=== PATIENT | male | born 1935 | race Caucasian/White ===

== ENCOUNTER 2016-11-16 13:07 | Observation (INO) | payer OTHER ==
[~2016-11-16] VITALS: Ht 170.2 cm; Wt 80.3 kg
[~2016-11-16 13:07] MED LIST: ADVAIR 250/501 DISK IH; ADVAIR 500/501 DISK IH; COMBIVENT RESPIM4 GM IH; DESYREL100 MG PO; DUONEB 2.5-0.5 M3 ML AEROSOL; FLOVENT 11120 INHALA IH; HYDRALAZINE HCL50 MG PO; INDOCIN50 MG PO; INDOMETHACIN50 MG PO; LISINOPRIL20 MG PO; LO-DOSE ASPIRIN81 M2 PO; NAPROXEN500 MG PO; NITROSTAT0.4 MG SL; OXAYDO5 MG PO; PANTOPRAZOLE SO40 MG PO; PERCOCET 5/31 TABLET PO; PREDNISONE10 MG PO; PREDNISONE20 MG PO; PRILOSEC20 MG PO; PRINIVIL10 MG PO; PROVENTIL,2.5 MG/3 M IH; SINGULAIR10 MG PO; THEO-24200 MG PO; VENTOLIN HFA18 GM IH; ZITHROMAX Z-PA250 MG PO; ZOCOR20 MG PO
[2016-11-16 14:20] LABS: HEMATOCRIT 39.1 % (38.0-50.0); MCH 28.7 PG (29.0-34.0); MCHC 32.5 G/DL (30.0-36.0); MCV 88.3 FL (86-99); MEAN PLAT.VOLUME 10.4 uM^3 (9.0-12.4); PLATELET COUNT 332 K/uL (156-360); RBC DIS.WIDTH-CV 15.2 % (11.8-14.6); RBC DIS.WIDTH-SD 47.8 % (39-53); RED BLOOD COUNT 4.43 M/uL (4.00-5.50); WHITE BLOOD COUNT 15.4 K/uL (4.1-10.2)
[2016-11-16 14:30] LABS: CHLORIDE 102 mEq/L (99-109); POTASSIUM 4.1 mEq/L (3.7-5.4); SODIUM 139 mEq/L (136-147)
[2016-11-16 14:32] LABS: GLUCOSE 90 mg/dL (70-99)
[2016-11-16 14:33] LABS: ANION GAP 12 MEQ/L (2-14)
[2016-11-16 14:36] LABS: GFR ESTIMATE (CALCULATED) 48 mL/min/
[2016-11-16 14:37] VITALS: BP 108/78
[2016-11-16 14:37] LABS: UREA NITROGEN (BUN) 42 mg/dL (9-23)
[2016-11-16 14:41] LABS: TROP-I INTERPRETATION NEGATIVE; TROPONIN-I 0.01 ng/mL (0.0-0.30)
[2016-11-16 15:00] VITALS: BP 134/56
[2016-11-16 15:19] LABS: PROTHROMBIN TIME 10.1 (9.2-11.2)
[2016-11-16 15:30] VITALS: BP 114/51
[2016-11-16 16:00] VITALS: BP 131/61
[2016-11-16 16:30] VITALS: BP 116/56
[2016-11-16] MEDS ORDERED: PRINIVIL20 MG PO (17:47)
[2016-11-16] MEDS ORDERED: PREDNISONE10 MG PO (17:50)
[2016-11-16 21:31] LABS: TROP-I INTERPRETATION NEGATIVE; TROPONIN-I 0.01 ng/mL (0.0-0.30)
[2016-11-16 21:33] VITALS: BP 105/52
[2016-11-17 00:26] VITALS: BP 134/63
[2016-11-17 03:02] LABS: TROP-I INTERPRETATION NEGATIVE; TROPONIN-I < 0.01 ng/mL (0.0-0.30)
[2016-11-17 04:30] VITALS: BP 122/56
[2016-11-17 07:03] LABS: HEMATOCRIT 38.6 % (38.0-50.0); MCHC 31.6 G/DL (30.0-36.0); MCV 88.7 FL (86-99); MEAN PLAT.VOLUME 10.7 uM^3 (9.0-12.4); PLATELET COUNT 304 K/uL (156-360); RBC DIS.WIDTH-CV 15.6 % (11.8-14.6); RBC DIS.WIDTH-SD 50.9 % (39-53); RED BLOOD COUNT 4.35 M/uL (4.00-5.50)
[2016-11-17 07:12] LABS: ANION GAP 11 MEQ/L (2-14); CHLORIDE 105 MEQ/L (99-109); GFR ESTIMATE (CALCULATED) > 59 mL/min/; SAMPLE HEMOLYSIS CHECK 0; SAMPLE ICTERIC CHECK 0; SAMPLE LIPEMIA CHECK 0; SODIUM 141 MEQ/L (136-147); UREA NITROGEN (BUN) 31 mg/dL (9-23)
[2016-11-17 07:13] LABS: WHITE BLOOD COUNT 7.1 K/uL (4.1-10.2)
[2016-11-17 07:21] LABS: GLUCOSE 154 mg/dL (70-99)
[2016-11-17 08:45] VITALS: BP 146/66
[2016-11-17] MEDS ORDERED: AZITHROMYCIN500 M1 PO (11:27)
== END 2016-11-17 12:01 | disposition home or self-care (01) ==
LOC: EME 13:07 → EDOF 18:16 → 5WEST 18:16 → EDOF 18:16 → 5WEST 21:25
PROVIDERS: Hospitalist; Physician Assistant
DX: I25.119 Atherosclerotic heart disease of native coronary artery with unspecified angina pectoris (principal); J44.1 Chronic obstructive pulmonary disease with (acute) exacerbation; N17.9 Acute kidney failure, unspecified; R20.0 Anesthesia of skin; I10 Essential (primary) hypertension; K21.9 Gastro-esophageal reflux disease without esophagitis; M10.9 Gout, unspecified; Z87.891 Personal history of nicotine dependence
CPT/HCPCS: 70450; 71020; 71275; 74174; 80048; 83605; 84484; 85027; 85610; 85730; 87040; 93005; 94640; 94640 76; 99202; 99281; 99284; G0378; J1644; J7030; J7512

== ENCOUNTER 2017-06-22 06:34 | Observation (INO) | payer OTHER ==
[~2017-06-22] VITALS: Ht 170.2 cm; Wt 77.8 kg
[~2017-06-22 06:34] MED LIST changes: +AZITHROMYCIN500 M1 PO; -OXAYDO5 MG PO; +OXYCODONE HCL5 MG PO; +PRINIVIL20 MG PO
[2017-06-22 07:41] LABS: BASOPHIL COUNT 0.1 K/uL (0-0.1); EOSINOPHIL (%) 8.6 % (0-5); EOSINOPHIL COUNT 1.1 K/uL (0-0.3); HEMATOCRIT 40.1 % (38.0-50.0); IMMATURE GRANULOCYTE (%) 1.5 % (0.0-0.7); IMMATURE GRANULOCYTE COUNT 0.2 K/uL; INSTRUMENT ABS NEUTROPHIL CT 7.4 K/uL; LYMPHOCYTE COUNT 2.7 K/uL (1.0-2.8); MCH 28.9 PG (29.0-34.0); MCHC 31.9 G/DL (30.0-36.0); MCV 90.5 FL (86-99); MONOCYTE (%) 7.8 % (3-12); NEUTROPHIL (%) 59.4 % (45-76); NEUTROPHIL COUNT 7.4 K/uL (1.8-6.4); PLATELET COUNT 234 K/uL (156-360); PROTHROMBIN TIME 11.5 SEC (10.2-12.9); RBC DIS.WIDTH-CV 13.8 % (11.8-14.6); RBC DIS.WIDTH-SD 45.9 % (39-53); RED BLOOD COUNT 4.43 M/uL (4.00-5.50); WHITE BLOOD COUNT 12.4 K/uL (4.1-10.2)
[2017-06-22 07:43] LABS: PTT 26.8 SEC (25-37)
[2017-06-22 08:08] LABS: ANION GAP 10 MEQ/L (2-14); CHLORIDE 102 MEQ/L (99-109); POTASSIUM 4.1 MEQ/L (3.7-5.4); SAMPLE HEMOLYSIS CHECK 0; SAMPLE ICTERIC CHECK 0; SAMPLE LIPEMIA CHECK 0; SODIUM 139 MEQ/L (136-147)
[2017-06-22 08:13] LABS: GFR ESTIMATE (CALCULATED) > 59 mL/min/; GLUCOSE 151 mg/dL (70-99); UREA NITROGEN (BUN) 31 mg/dL (9-23)
[2017-06-22 08:16] LABS: TROP-I INTERPRETATION NEGATIVE; TROPONIN-I 0.02 ng/mL (0.0-0.30)
[2017-06-22 12:30] VITALS: BP 152/70
[2017-06-22 14:45] LABS: TROP-I INTERPRETATION NEGATIVE; TROPONIN-I 0.02 ng/mL (0.0-0.30)
[2017-06-22 15:48] VITALS: BP 121/56
[2017-06-22 20:00] VITALS: BP 92/54
[2017-06-22 20:37] LABS: TROP-I INTERPRETATION NEGATIVE; TROPONIN-I 0.02 ng/mL (0.0-0.30)
[2017-06-22 23:30] VITALS: BP 131/59
[2017-06-23 07:34] VITALS: BP 124/61
[2017-06-23] MEDS ORDERED: MELOXICAM15 MG PO (09:41)
[2017-06-23] MEDS ORDERED: TIZANIDINE HCL4 MG PO (09:41)
[2017-06-23] MEDS ORDERED: INDOCIN50 MG PO (09:41)
[2017-06-23 10:36] VITALS: BP 143/60
[2017-06-23] MEDS ORDERED: METOPROLOL SUCC25 MG PO (10:42)
== END 2017-06-23 13:04 | disposition home or self-care (01) ==
LOC: EME → EDBD 06:34 → EDOF 09:34 → 5WEST 09:34 → EDOF 09:34 → ENRESERV 09:44 → 5WEST 12:31
PROVIDERS: Emergency Medicine; Internal Medicine; Internal Medicine Cardiovascular Disease
DX: I47.1 Supraventricular tachycardia (principal); I25.10 Atherosclerotic heart disease of native coronary artery without angina pectoris; J44.9 Chronic obstructive pulmonary disease, unspecified; I11.9 Hypertensive heart disease without heart failure; K21.9 Gastro-esophageal reflux disease without esophagitis; E78.5 Hyperlipidemia, unspecified; Z91.19 Patient's noncompliance with other medical treatment and regimen; Z91.14 Patient's other noncompliance with medication regimen; M10.9 Gout, unspecified; Z87.891 Personal history of nicotine dependence; D72.829 Elevated white blood cell count, unspecified; Z80.0 Family history of malignant neoplasm of digestive organs; Z80.51 Family history of malignant neoplasm of kidney
CPT/HCPCS: 71010; 80048; 84443; 84484; 85025; 85379; 85610; 85730; 93005; 93306; 94640; 94640 76; 94760; 99202; 99281; 99285; G0378; J1650; J7512

== ENCOUNTER 2017-10-02 15:42 | Inpatient (IN) | payer OTHER ==
[~2017-10-02] VITALS: Ht 170.2 cm; Wt 84.5 kg
[~2017-10-02 15:42] MED LIST changes: +MELOXICAM15 MG PO; +METOPROLOL SUCC25 MG PO; -PRINIVIL20 MG PO; +TIZANIDINE HCL4 MG PO
[2017-10-02 16:08] LABS: HEMATOCRIT 36.9 % (38.0-50.0); HEMOGLOBIN 12.2 G/DL (12.5-16.6); MCHC 33.1 G/DL (30.0-36.0); MCV 87.9 FL (86-99); NRBC (%) 0.2 /100 WBC (0-0); PLATELET COUNT 373 K/uL (156-360); RBC DIS.WIDTH-CV 14.8 % (11.8-14.6); RBC DIS.WIDTH-SD 47.8 % (39-53); WHITE BLOOD COUNT 14.1 K/uL (4.1-10.2)
[2017-10-02 16:11] LABS: ALBUMIN 3.7 g/dL (3.2-4.8); CHLORIDE 106 mEq/L (99-109); POTASSIUM 4.2 mEq/L (3.7-5.4); SODIUM 141 mEq/L (136-147)
[2017-10-02 16:13] LABS: GLUCOSE 165 mg/dL (70-99); TOTAL PROTEIN 5.9 g/dL (6.4-8.3)
[2017-10-02 16:15] LABS: TOTAL BILIRUBIN 0.3 mg/dL (0.0-1.0)
[2017-10-02 16:17] LABS: ALKALINE PHOSPHATASE 91 IU/L (3-129); CREATININE 1.2 mg/dL (0.6-1.3); GFR ESTIMATE (CALCULATED) > 59 mL/min/ (58.99-99999)
[2017-10-02 16:18] LABS: UREA NITROGEN (BUN) 35 mg/dL (9-23)
[2017-10-02 16:19] LABS: AST (GOT) 14 IU/L (2-34)
[2017-10-02 16:20] LABS: ALT (GPT) 14 IU/L (3-49); CREATINE KINASE 72 IU/L (1-294); TOTAL CK 72 IU/L (1-294)
[2017-10-02 16:23] LABS: TROP-I INTERPRETATION NEGATIVE; TROPONIN-I 0.03 ng/mL (0.0-0.30)
[2017-10-02 16:26] LABS: CK-MB 1.6 ng/mL (0.0-4.9); CKMB RELATIVE INDEX 2.2 (0.0-3.9)
[2017-10-02] MEDS ORDERED: VENTOLIN HFA18 GM IH (17:38)
[2017-10-02] MEDS ORDERED: DELTASONE20 M1 PO (17:40)
[2017-10-02] MEDS ORDERED: PREDNISONE5 MG PO (17:40)
[2017-10-02] MEDS ORDERED: ISOSORBIDE DINI20 MG PO (17:41)
[2017-10-02] MEDS ORDERED: ATORVASTATIN CA40 MG PO (17:41)
[2017-10-02] MEDS ORDERED: SINGULAIR10 MG PO (17:41)
[2017-10-02 22:56] LABS: TROP-I INTERPRETATION NEGATIVE; TROPONIN-I 0.03 ng/mL (0.0-0.30)
[2017-10-03 09:11] LABS: TROP-I INTERPRETATION NEGATIVE; TROPONIN-I 0.02 ng/mL (0.0-0.30)
[2017-10-03 17:57] VITALS: BP 138/77
[2017-10-03 19:20] VITALS: BP 162/73
[2017-10-03 23:30] VITALS: BP 134/65
[2017-10-04] VITALS (8 sets, daily range): BP systolic 134–180; BP diastolic 62–85
[2017-10-04 04:44] LABS: HEMOGLOBIN 10.3 G/DL (12.5-16.6); MCH 29.3 PG (29.0-34.0); MCHC 33.2 G/DL (30.0-36.0); MCV 88.1 FL (86-99); PLATELET COUNT 307 K/uL (156-360); RBC DIS.WIDTH-CV 14.8 % (11.8-14.6); RBC DIS.WIDTH-SD 47.9 % (39-53); RED BLOOD COUNT 3.52 M/uL (4.00-5.50); WHITE BLOOD COUNT 14.7 K/uL (4.1-10.2)
[2017-10-04 04:53] LABS: ALBUMIN 3.2 g/dL (3.2-4.8); CHLORIDE 111 mEq/L (99-109); POTASSIUM 4.5 mEq/L (3.7-5.4); SODIUM 141 mEq/L (136-147)
[2017-10-04 04:55] LABS: GLUCOSE 156 mg/dL (70-99)
[2017-10-04 04:57] LABS: TOTAL PROTEIN 4.9 g/dL (6.4-8.3)
[2017-10-04 04:59] LABS: CREATININE 1.1 mg/dL (0.6-1.3); GFR ESTIMATE (CALCULATED) > 59 mL/min/ (58.99-99999)
[2017-10-04 05:00] LABS: UREA NITROGEN (BUN) 33 mg/dL (9-23)
[2017-10-04 05:01] LABS: AST (GOT) 8 IU/L (2-34)
[2017-10-04 05:02] LABS: ALT (GPT) 11 IU/L (3-49)
[2017-10-04 05:03] LABS: ALKALINE PHOSPHATASE 55 IU/L (3-129); TOTAL BILIRUBIN 0.5 mg/dL (0.0-1.0)
[2017-10-05 05:57] LABS: HEMATOCRIT 32.6 % (38.0-50.0); HEMOGLOBIN 10.5 G/DL (12.5-16.6); MCH 28.5 PG (29.0-34.0); MCHC 32.2 G/DL (30.0-36.0); MCV 88.3 FL (86-99); PLATELET COUNT 310 K/uL (156-360); RBC DIS.WIDTH-CV 15.3 % (11.8-14.6); RBC DIS.WIDTH-SD 48.9 % (39-53); RED BLOOD COUNT 3.69 M/uL (4.00-5.50); WHITE BLOOD COUNT 12.4 K/uL (4.1-10.2)
[2017-10-05 06:42] LABS: ALBUMIN 2.9 G/DL (3.2-4.8); ALKALINE PHOSPHATASE 50 IU/L (3-129); ALT (GPT) 8 IU/L (3-49); AST (GOT) 7 IU/L (2-34); CHLORIDE 108 MEQ/L (99-109); CREATININE 1.3 MG/DL (0.6-1.3); GFR ESTIMATE (CALCULATED) 56 mL/min/ (58.99-99999); GLUCOSE 156 mg/dL (70-99); POTASSIUM 4.6 MEQ/L (3.7-5.4); SODIUM 141 MEQ/L (136-147); TOTAL BILIRUBIN 0.5 MG/DL (0.0-1.0); UREA NITROGEN (BUN) 44 mg/dL (9-23)
[2017-10-05 07:41] VITALS: BP 167/83
[2017-10-05 11:34] VITALS: BP 143/79
[2017-10-05 15:14] VITALS: BP 164/68
[2017-10-05 21:00] VITALS: BP 180/75
[2017-10-06] VITALS (8 sets, daily range): BP systolic 146–195; BP diastolic 69–101
[2017-10-07 03:30] VITALS: BP 180/75
[2017-10-07 05:19] LABS: HEMOGLOBIN 10.2 G/DL (12.5-16.6); MCH 29.1 PG (29.0-34.0); MCHC 32.9 G/DL (30.0-36.0); MCV 88.6 FL (86-99); NRBC (%) 0.2 /100 WBC (0-0); PLATELET COUNT 256 K/uL (156-360); RBC DIS.WIDTH-CV 15.8 % (11.8-14.6); WHITE BLOOD COUNT 13.2 K/uL (4.1-10.2)
[2017-10-07 05:54] LABS: ALBUMIN 2.8 G/DL (3.2-4.8); ALKALINE PHOSPHATASE 56 IU/L (3-129); ALT (GPT) 10 IU/L (3-49); AST (GOT) 9 IU/L (2-34); CHLORIDE 105 MEQ/L (99-109); GFR ESTIMATE (CALCULATED) > 59 mL/min/ (58.99-99999); GLUCOSE 105 mg/dL (70-99); POTASSIUM 4.5 MEQ/L (3.7-5.4); SODIUM 140 MEQ/L (136-147); TOTAL BILIRUBIN 0.5 MG/DL (0.0-1.0); TOTAL PROTEIN 4.7 G/DL (6.4-8.3); UREA NITROGEN (BUN) 41 mg/dL (9-23)
[2017-10-07 06:13] VITALS: BP 153/87
[2017-10-07] MEDS ORDERED: METOPROLOL SUCC50 MG PO (08:22)
[2017-10-07] MEDS ORDERED: PREDNISONE20 MG PO (08:22)
[2017-10-07 08:48] VITALS: BP 151/78
== END 2017-10-07 09:00 | disposition home or self-care (01) | DRG 287 ==
LOC: EME 15:42 → EDOF 18:15 → 4EAST 18:15 → ENRESERV 19:00 → 4EAST 10-03 17:47
PROVIDERS: Family Medicine; Internal Medicine; Physician Assistant
DX: I48.91 Unspecified atrial fibrillation (principal); I47.1 Supraventricular tachycardia; I48.92 Unspecified atrial flutter; J20.9 Acute bronchitis, unspecified; J44.0 Chronic obstructive pulmonary disease with (acute) lower respiratory infection; J44.1 Chronic obstructive pulmonary disease with (acute) exacerbation; I95.9 Hypotension, unspecified; I11.9 Hypertensive heart disease without heart failure; I25.10 Atherosclerotic heart disease of native coronary artery without angina pectoris; R91.8 Other nonspecific abnormal finding of lung field; K21.9 Gastro-esophageal reflux disease without esophagitis; M10.9 Gout, unspecified; E66.9 Obesity, unspecified; Z68.29 Body mass index [BMI] 29.0-29.9, adult; E78.5 Hyperlipidemia, unspecified; Z91.19 Patient's noncompliance with other medical treatment and regimen; Z87.891 Personal history of nicotine dependence; Z80.0 Family history of malignant neoplasm of digestive organs; Z80.51 Family history of malignant neoplasm of kidney; Z82.5 Family history of asthma and other chronic lower respiratory diseases
CPT/HCPCS: 71046; 71250; 80053; 82550; 82553; 84484; 85027; 93005; 94640; 94640 76; 94799; 99202; 99281; 99285; C1769; C1887; J0456; J1644; J1650; J2250; J2405; J2930; J3010; J7030; J7040; J7050; J7512

== ENCOUNTER 2017-11-27 15:54 | Inpatient (IN) | payer OTHER ==
[~2017-11-27] VITALS: Ht 170.2 cm; Wt 82.0 kg
[~2017-11-27 15:54] MED LIST changes: +ATORVASTATIN CA40 MG PO; +DELTASONE20 M1 PO; +ISOSORBIDE DINI20 MG PO; +METOPROLOL SUCC50 MG PO; +PREDNISONE5 MG PO
[2017-11-27 16:59] LABS: HEMATOCRIT 30.3 % (38.0-50.0); HEMOGLOBIN 9.9 G/DL (12.5-16.6); MCH 29.1 PG (29.0-34.0); MCHC 32.7 G/DL (30.0-36.0); MCV 89.1 FL (86-99); PLATELET COUNT 320 K/uL (156-360); RBC DIS.WIDTH-CV 14.4 % (11.8-14.6); RBC DIS.WIDTH-SD 46.8 % (39-53); WHITE BLOOD COUNT 13.7 K/uL (4.1-10.2)
[2017-11-27 17:10] LABS: CHLORIDE 107 mEq/L (99-109); POTASSIUM 4.7 mEq/L (3.7-5.4)
[2017-11-27 17:11] LABS: SODIUM 141 mEq/L (136-147)
[2017-11-27 17:12] LABS: GLUCOSE 125 mg/dL (70-99)
[2017-11-27 17:16] LABS: CREATININE 1.6 mg/dL (0.6-1.3); GFR ESTIMATE (CALCULATED) 44 mL/min/ (58.99-99999)
[2017-11-27 17:17] LABS: UREA NITROGEN (BUN) 35 mg/dL (9-23)
[2017-11-27 17:20] LABS: TROP-I INTERPRETATION NEGATIVE; TROPONIN-I < 0.01 ng/mL (0.0-0.30)
[2017-11-27 18:29] LABS: ALBUMIN 3.4 g/dL (3.2-4.8)
[2017-11-27 18:32] LABS: TOTAL PROTEIN 6.6 g/dL (6.4-8.3)
[2017-11-27 18:34] LABS: TOTAL BILIRUBIN 0.8 mg/dL (0.0-1.0)
[2017-11-27 18:35] LABS: ALKALINE PHOSPHATASE 74 IU/L (3-129)
[2017-11-27 18:37] LABS: AST (GOT) 16 IU/L (2-34)
[2017-11-27 18:38] LABS: ALT (GPT) 5 IU/L (3-49); DIRECT BILIRUBIN 0.4 mg/dL (0.0-0.3); URIC ACID 11.5 mg/dL (3.1-9.2)
[2017-11-27] MEDS ORDERED: TOPROL XL50 MG PO (18:59)
[2017-11-27] MEDS ORDERED: RAYOS5 MG PO (19:01)
[2017-11-27] MEDS ORDERED: MOBIC15 MG PO (19:01)
[2017-11-27] MEDS ORDERED: ZANAFLEX4 M1 PO (19:02)
[2017-11-27] MEDS ORDERED: OXAYDO5 MG PO (19:02)
[2017-11-27] MEDS ORDERED: ATROVENT 00.5 MG/2.5 IH (19:03)
[2017-11-27] MEDS ORDERED: LO-DOSE ASPIRIN81 M2 PO (19:04)
[2017-11-27 20:54] VITALS: BP 169/74
[2017-11-27 23:00] VITALS: BP 150/58
[2017-11-28 03:47] VITALS: BP 123/57
[2017-11-28 06:47] LABS: BASOPHIL (%) 0.3 % (0-1); EOSINOPHIL (%) 0 % (0-5); HEMATOCRIT 27.1 % (38.0-50.0); HEMOGLOBIN 8.5 G/DL (12.5-16.6); IMMATURE GRANULOCYTE (%) 0.7 % (0.0-0.7); LYMPHOCYTE (%) 15.1 % (15-42); LYMPHOCYTE COUNT 1.1 K/uL (1.0-2.8); MCH 28.4 PG (29.0-34.0); MCHC 31.4 G/DL (30.0-36.0); MCV 90.6 FL (86-99); MONOCYTE (%) 1.4 % (3-12); MONOCYTE COUNT 0.1 K/uL (0-0.8); NEUTROPHIL (%) 82.5 % (45-76); NEUTROPHIL COUNT 5.8 K/uL (1.8-6.4); PLATELET COUNT 286 K/uL (156-360); RBC DIS.WIDTH-CV 14.7 % (11.8-14.6); RBC DIS.WIDTH-SD 48.8 % (39-53); RED BLOOD COUNT 2.99 M/uL (4.00-5.50); WHITE BLOOD COUNT 7.1 K/uL (4.1-10.2)
[2017-11-28 07:05] LABS: TROP-I INTERPRETATION NEGATIVE; TROPONIN-I < 0.01 ng/mL (0.0-0.30)
[2017-11-28 07:18] LABS: ALBUMIN 2.9 G/DL (3.2-4.8); ALKALINE PHOSPHATASE 60 IU/L (3-129); ALT (GPT) 4 IU/L (3-49); AST (GOT) < 7 IU/L (2-34); CHLORIDE 110 MEQ/L (99-109); CREATININE 1.6 MG/DL (0.6-1.3); GFR ESTIMATE (CALCULATED) 44 mL/min/ (58.99-99999); MAGNESIUM 1.6 mg/dl (1.3-2.7); PHOSPHORUS 2.9 mg/dL (2.5-4.9); SODIUM 141 MEQ/L (136-147); TOTAL BILIRUBIN 0.5 MG/DL (0.0-1.0); TOTAL PROTEIN 5.2 G/DL (6.4-8.3); UREA NITROGEN (BUN) 36 mg/dL (9-23)
[2017-11-28 07:31] LABS: GLUCOSE 325 mg/dL (70-99)
[2017-11-28 07:32] LABS: POTASSIUM 5.7 MEQ/L (3.7-5.4)
[2017-11-28 07:49] VITALS: BP 137/67
[2017-11-28 08:17] LABS: APPEARANCE CLEAR ((CLEAR)); COLOR YELLOW ((YELLOW))
[2017-11-28 08:18] LABS: PROTEIN (STRIP) TRACE; UROBILINOGEN 0.2 MG/DL (0.2-1.0)
[2017-11-28 08:19] LABS: BILIRUBIN NEGATIVE; BLOOD NEGATIVE; GLUCOSE (STRIP) NEGATIVE; KETONES NEGATIVE; LEUKOCYTES NEGATIVE; NITRITE NEGATIVE; UCUL ADDED? NO
[2017-11-28 11:02] LABS: LYME DISEASE SEROLOGY SCREEN NEGATIVE (NEGATIVE)
[2017-11-28 11:09] LABS: HEMOGLOBIN A1c (GLYCOHEMOGLOB) 6.4 % (Below 5.7)
[2017-11-28 11:18] VITALS: BP 136/78
[2017-11-28 15:32] VITALS: BP 176/72
[2017-11-28 18:19] LABS: STOOL OCCULT BLD 1ST SPECIMEN NEGATIVE
[2017-11-28 19:50] VITALS: BP 140/90
[2017-11-29 00:05] VITALS: BP 188/77
[2017-11-29 03:48] VITALS: BP 149/63
[2017-11-29 05:29] LABS: HEMATOCRIT 25.2 % (38.0-50.0); HEMOGLOBIN 8.3 G/DL (12.5-16.6); MCH 29.3 PG (29.0-34.0); MCHC 32.9 G/DL (30.0-36.0); PLATELET COUNT 318 K/uL (156-360); RBC DIS.WIDTH-CV 14.8 % (11.8-14.6); RBC DIS.WIDTH-SD 48.4 % (39-53); RED BLOOD COUNT 2.83 M/uL (4.00-5.50); WHITE BLOOD COUNT 13.7 K/uL (4.1-10.2)
[2017-11-29 05:55] LABS: ALBUMIN 2.8 G/DL (3.2-4.8); CHLORIDE 110 MEQ/L (99-109); CREATININE 1.7 MG/DL (0.6-1.3); GFR ESTIMATE (CALCULATED) 41 mL/min/ (58.99-99999); GLUCOSE 192 mg/dL (70-99); IRON 57 MCG/DL (35-150); PHOSPHORUS 3.4 mg/dL (2.5-4.9); POTASSIUM 5.9 MEQ/L (3.7-5.4); SODIUM 141 MEQ/L (136-147); TRANSFERRIN (TIBC) 157.6 mg/dL (215-380); TRANSFERRIN SATUR. 36 % (20-55); UREA NITROGEN (BUN) 40 mg/dL (9-23)
[2017-11-29 06:15] LABS: URIC ACID 10.3 mg/dL (3.1-9.2)
[2017-11-29 08:05] LABS: FERRITIN 212 NG/ML (22-322)
[2017-11-29 08:08] LABS: FOLIC ACID (FOLATE) 8.7 NG/ML (5.0-22.0)
[2017-11-29 08:48] VITALS: BP 172/74
[2017-11-29 11:27] VITALS: BP 188/79
[2017-11-29 16:11] LABS: CHLORIDE 108 MEQ/L (99-109); CREATININE 1.5 MG/DL (0.6-1.3); GFR ESTIMATE (CALCULATED) 48 mL/min/ (58.99-99999); SODIUM 138 MEQ/L (136-147); UREA NITROGEN (BUN) 43 mg/dL (9-23)
[2017-11-29 16:30] LABS: GLUCOSE 295 mg/dL (70-99)
[2017-11-29 20:39] VITALS: BP 127/60
[2017-11-30 00:22] VITALS: BP 131/67
[2017-11-30 04:17] VITALS: BP 174/77
[2017-11-30 05:49] LABS: BASOPHIL (%) 0.1 % (0-1); EOSINOPHIL (%) 0 % (0-5); HEMATOCRIT 25.4 % (38.0-50.0); HEMOGLOBIN 8.1 G/DL (12.5-16.6); IMMATURE GRANULOCYTE (%) 0.8 % (0.0-0.7); LYMPHOCYTE (%) 18.2 % (15-42); LYMPHOCYTE COUNT 2.3 K/uL (1.0-2.8); MCH 28.2 PG (29.0-34.0); MCHC 31.9 G/DL (30.0-36.0); MCV 88.5 FL (86-99); MONOCYTE (%) 9.1 % (3-12); MONOCYTE COUNT 1.2 K/uL (0-0.8); NEUTROPHIL (%) 71.8 % (45-76); NEUTROPHIL COUNT 9.1 K/uL (1.8-6.4); PLATELET COUNT 334 K/uL (156-360); RBC DIS.WIDTH-CV 14.8 % (11.8-14.6); RBC DIS.WIDTH-SD 48.4 % (39-53); RED BLOOD COUNT 2.87 M/uL (4.00-5.50); WHITE BLOOD COUNT 12.7 K/uL (4.1-10.2)
[2017-11-30 06:15] LABS: ALBUMIN 2.9 G/DL (3.2-4.8); CHLORIDE 108 MEQ/L (99-109); CREATININE 1.3 MG/DL (0.6-1.3); GFR ESTIMATE (CALCULATED) 56 mL/min/ (58.99-99999); PHOSPHORUS 3.6 mg/dL (2.5-4.9); POTASSIUM 4.5 MEQ/L (3.7-5.4); SODIUM 142 MEQ/L (136-147); UREA NITROGEN (BUN) 41 mg/dL (9-23)
[2017-11-30 06:17] LABS: GLUCOSE 126 mg/dL (70-99)
[2017-11-30 07:36] VITALS: BP 183/85
[2017-11-30 12:01] VITALS: BP 161/74
[2017-11-30 18:49] VITALS: BP 158/62
[2017-12-01] VITALS (8 sets, daily range): BP systolic 118–188; BP diastolic 57–92
[2017-12-01 05:38] LABS: BASOPHIL (%) 0.2 % (0-1); EOSINOPHIL (%) 0 % (0-5); HEMATOCRIT 29.3 % (38.0-50.0); HEMOGLOBIN 9.2 G/DL (12.5-16.6); IMMATURE GRANULOCYTE (%) 2.4 % (0.0-0.7); LYMPHOCYTE (%) 13.9 % (15-42); LYMPHOCYTE COUNT 1.6 K/uL (1.0-2.8); MCH 27.8 PG (29.0-34.0); MCHC 31.4 G/DL (30.0-36.0); MCV 88.5 FL (86-99); MONOCYTE (%) 3.6 % (3-12); MONOCYTE COUNT 0.4 K/uL (0-0.8); NEUTROPHIL (%) 79.9 % (45-76); NEUTROPHIL COUNT 9.1 K/uL (1.8-6.4); PLATELET COUNT 391 K/uL (156-360); RBC DIS.WIDTH-SD 49.1 % (39-53); RED BLOOD COUNT 3.31 M/uL (4.00-5.50); WHITE BLOOD COUNT 11.4 K/uL (4.1-10.2)
[2017-12-01 06:05] LABS: ALBUMIN 3.2 G/DL (3.2-4.8); CHLORIDE 104 MEQ/L (99-109); CREATININE 1.3 MG/DL (0.6-1.3); GFR ESTIMATE (CALCULATED) 56 mL/min/ (58.99-99999); GLUCOSE 212 mg/dL (70-99); PHOSPHORUS 4.1 mg/dL (2.5-4.9); POTASSIUM 4.7 MEQ/L (3.7-5.4); SODIUM 142 MEQ/L (136-147); UREA NITROGEN (BUN) 38 mg/dL (9-23)
[2017-12-01 06:08] LABS: CHLORIDE 104 MEQ/L (99-109); CREATININE 1.3 MG/DL (0.6-1.3); GFR ESTIMATE (CALCULATED) 56 mL/min/ (58.99-99999); GLUCOSE 214 mg/dL (70-99); POTASSIUM 4.7 MEQ/L (3.7-5.4); SODIUM 143 MEQ/L (136-147); UREA NITROGEN (BUN) 37 mg/dL (9-23)
[2017-12-02 03:43] VITALS: BP 125/58
[2017-12-02 06:06] LABS: BASOPHIL (%) 0.2 % (0-1); EOSINOPHIL (%) 0 % (0-5); HEMATOCRIT 29.5 % (38.0-50.0); HEMOGLOBIN 9.3 G/DL (12.5-16.6); IMMATURE GRANULOCYTE (%) 4.1 % (0.0-0.7); LYMPHOCYTE (%) 16.4 % (15-42); LYMPHOCYTE COUNT 2.1 K/uL (1.0-2.8); MCH 27.8 PG (29.0-34.0); MCHC 31.5 G/DL (30.0-36.0); MCV 88.1 FL (86-99); MONOCYTE (%) 4.1 % (3-12); MONOCYTE COUNT 0.5 K/uL (0-0.8); NEUTROPHIL (%) 75.2 % (45-76); NEUTROPHIL COUNT 9.4 K/uL (1.8-6.4); PLATELET COUNT 430 K/uL (156-360); RBC DIS.WIDTH-CV 14.9 % (11.8-14.6); RBC DIS.WIDTH-SD 47.8 % (39-53); RED BLOOD COUNT 3.35 M/uL (4.00-5.50); WHITE BLOOD COUNT 12.6 K/uL (4.1-10.2)
[2017-12-02 06:26] LABS: ALBUMIN 3.4 G/DL (3.2-4.8); CHLORIDE 104 MEQ/L (99-109); GFR ESTIMATE (CALCULATED) > 59 mL/min/ (58.99-99999); GLUCOSE 145 mg/dL (70-99); PHOSPHORUS 3.7 mg/dL (2.5-4.9); POTASSIUM 4.2 MEQ/L (3.7-5.4); SODIUM 140 MEQ/L (136-147); UREA NITROGEN (BUN) 38 mg/dL (9-23)
[2017-12-02 06:28] LABS: URIC ACID 8.7 mg/dL (3.1-9.2)
[2017-12-02 06:47] LABS: C-REACTIVE PROTEIN 18.1 MG/L (0-10)
[2017-12-02 07:22] VITALS: BP 154/69
[2017-12-02 07:58] LABS: ERTH.SED.RATE 49 MM/HR (0-20)
[2017-12-02] MEDS ORDERED: MEDROL DOSEPAK4 MG PO (09:18)
[2017-12-02] MEDS ORDERED: DOCUSATE SODIU100 MG PO (09:18)
[2017-12-02] MEDS ORDERED: AMLODIPINE BESY10 MG PO (09:18)
[2017-12-02 10:40] VITALS: BP 140/62
== END 2017-12-02 13:16 | disposition home or self-care (01) | DRG 305 ==
LOC: EME 15:54 → EDOF 19:38 → 5WEST 19:38 → ENRESERV 19:46 → 5WEST 20:37
PROVIDERS: Hospitalist; Internal Medicine; Internal Medicine Nephrology; Physician Assistant Medical
DX: I16.0 Hypertensive urgency (principal); N17.9 Acute kidney failure, unspecified; E87.5 Hyperkalemia; T39.395A Adverse effect of other nonsteroidal anti-inflammatory drugs [NSAID], initial encounter; T46.4X5A Adverse effect of angiotensin-converting-enzyme inhibitors, initial encounter; M10.9 Gout, unspecified; I12.9 Hypertensive chronic kidney disease with stage 1 through stage 4 chronic kidney disease, or unspecified chronic kidney disease; N18.3 Chronic kidney disease, stage 3 (moderate); R73.9 Hyperglycemia, unspecified; T38.0X5A Adverse effect of glucocorticoids and synthetic analogues, initial encounter; I25.10 Atherosclerotic heart disease of native coronary artery without angina pectoris; D64.9 Anemia, unspecified; E78.5 Hyperlipidemia, unspecified; I47.1 Supraventricular tachycardia; I48.91 Unspecified atrial fibrillation; K21.9 Gastro-esophageal reflux disease without esophagitis; K29.70 Gastritis, unspecified, without bleeding; I48.92 Unspecified atrial flutter; J44.9 Chronic obstructive pulmonary disease, unspecified; Z79.1 Long term (current) use of non-steroidal anti-inflammatories (NSAID); Z79.52 Long term (current) use of systemic steroids; Z79.82 Long term (current) use of aspirin; Z87.891 Personal history of nicotine dependence
CPT/HCPCS: 71046; 73630; 76770; 78582; 80048; 80048 91; 80053; 80069; 80076; 81003; 82272; 82607; 82728; 82746; 83036; 83540; 83735; 83880; 84100; 84466; 84484; 84550; 85025; 85027; 85379; 85652; 86038; 86140; 86235; 86430; 86618; 87040; 93005; 94640; 94640 76; 99202; 99281; 99285; A9540; A9567; G0378; G8987 GO CH; G8988 GO CH; G8989 GO CH; J1644; J1940; J2920; J2930; J7030; J7512; S0028

== ENCOUNTER 2018-01-17 12:01 | Inpatient (IN) | payer OTHER ==
[~2018-01-17] VITALS: Ht 170.2 cm; Wt 89.8 kg
[~2018-01-17 12:01] MED LIST changes: +AMLODIPINE BESY10 MG PO; +ATROVENT 00.5 MG/2.5 IH; -COMBIVENT RESPIM4 GM IH; +DOCUSATE SODIU100 MG PO; +MEDROL DOSEPAK4 MG PO; +MOBIC15 MG PO; +OXAYDO5 MG PO; +RAYOS5 MG PO; +TOPROL XL50 MG PO; +ZANAFLEX4 M1 PO
[2018-01-17 13:58] LABS: HEMATOCRIT 35.9 % (38.0-50.0); HEMOGLOBIN 11.6 G/DL (12.5-16.6); MCH 28.6 PG (29.0-34.0); MCHC 32.3 G/DL (30.0-36.0); MCV 88.4 FL (86-99); PLATELET COUNT 408 K/uL (156-360); RBC DIS.WIDTH-CV 15.1 % (11.8-14.6); RBC DIS.WIDTH-SD 49.5 % (39-53); RED BLOOD COUNT 4.06 M/uL (4.00-5.50); WHITE BLOOD COUNT 9.1 K/uL (4.1-10.2)
[2018-01-17 14:06] LABS: ALBUMIN 3.8 g/dL (3.2-4.8); CHLORIDE 100 mEq/L (99-109); POTASSIUM 5.9 mEq/L (3.7-5.4); SODIUM 138 mEq/L (136-147)
[2018-01-17 14:09] LABS: GLUCOSE 82 mg/dL (70-99); TOTAL PROTEIN 7.4 g/dL (6.4-8.3)
[2018-01-17 14:10] LABS: TOTAL BILIRUBIN 0.9 mg/dL (0.0-1.0)
[2018-01-17 14:12] LABS: ALKALINE PHOSPHATASE 79 IU/L (3-129); CREATININE 1.8 mg/dL (0.6-1.3); GFR ESTIMATE (CALCULATED) 39 mL/min/ (58.99-99999)
[2018-01-17 14:13] LABS: UREA NITROGEN (BUN) 29 mg/dL (9-23)
[2018-01-17 14:14] LABS: AST (GOT) 13 IU/L (2-34)
[2018-01-17 14:15] LABS: ALT (GPT) 8 IU/L (3-49)
[2018-01-17 14:16] LABS: LIPASE 4 U/L (1.0-51.0)
[2018-01-17 14:22] LABS: TROP-I INTERPRETATION NEGATIVE; TROPONIN-I < 0.01 ng/mL (0.0-0.30)
[2018-01-17] MEDS ORDERED: DICLOFENAC POTA50 MG PO (16:12)
[2018-01-17 17:34] VITALS: BP 132/67
[2018-01-17 18:49] LABS: APPEARANCE CLEAR ((CLEAR)); BILIRUBIN NEGATIVE; BLOOD NEGATIVE; COLOR YELLOW ((YELLOW)); GLUCOSE (STRIP) NEGATIVE; KETONES 20; LEUKOCYTES NEGATIVE; NITRITE NEGATIVE; PROTEIN (STRIP) NEGATIVE; SPECIFIC GRAVITY 1.015 (1.000-1.030); UCUL ADDED? NO; UROBILINOGEN 0.2 MG/DL (0.2-1.0)
[2018-01-17 19:30] VITALS: BP 155/67
[2018-01-18 00:15] VITALS: BP 103/47
[2018-01-18 04:23] VITALS: BP 122/56
[2018-01-18 05:51] LABS: CHLORIDE 104 MEQ/L (99-109); CREATININE 1.4 MG/DL (0.6-1.3); GFR ESTIMATE (CALCULATED) 52 mL/min/ (58.99-99999); SODIUM 138 MEQ/L (136-147); UREA NITROGEN (BUN) 22 mg/dL (9-23)
[2018-01-18 05:56] LABS: GLUCOSE 108 mg/dL (70-99); POTASSIUM 4.3 MEQ/L (3.7-5.4)
[2018-01-18 07:26] VITALS: BP 88/56
[2018-01-18 15:41] VITALS: BP 151/73
[2018-01-18 19:45] VITALS: BP 172/79
[2018-01-18 23:47] VITALS: BP 116/54
[2018-01-19 03:28] VITALS: BP 108/50
[2018-01-19 05:34] LABS: BASOPHIL (%) 0.5 % (0-1); EOSINOPHIL COUNT 0.5 K/uL (0-0.3); HEMATOCRIT 28.8 % (38.0-50.0); IMMATURE GRANULOCYTE (%) 0.5 % (0.0-0.7); LYMPHOCYTE (%) 27.9 % (15-42); LYMPHOCYTE COUNT 1.7 K/uL (1.0-2.8); MCH 27.7 PG (29.0-34.0); MCHC 31.3 G/DL (30.0-36.0); MCV 88.6 FL (86-99); MONOCYTE (%) 13.9 % (3-12); MONOCYTE COUNT 0.8 K/uL (0-0.8); NEUTROPHIL (%) 48.2 % (45-76); NEUTROPHIL COUNT 2.9 K/uL (1.8-6.4); PLATELET COUNT 329 K/uL (156-360); RBC DIS.WIDTH-CV 15.2 % (11.8-14.6); RBC DIS.WIDTH-SD 49.4 % (39-53); RED BLOOD COUNT 3.25 M/uL (4.00-5.50); WHITE BLOOD COUNT 5.9 K/uL (4.1-10.2)
[2018-01-19 05:46] LABS: ALBUMIN 2.7 G/DL (3.2-4.8); CHLORIDE 104 MEQ/L (99-109); CREATININE 1.1 MG/DL (0.6-1.3); GFR ESTIMATE (CALCULATED) > 59 mL/min/ (58.99-99999); PHOSPHORUS 3.4 mg/dL (2.5-4.9); POTASSIUM 4.1 MEQ/L (3.7-5.4); SODIUM 137 MEQ/L (136-147); UREA NITROGEN (BUN) 12 mg/dL (9-23)
[2018-01-19 05:51] LABS: GLUCOSE 164 mg/dL (70-99)
[2018-01-19 08:45] VITALS: BP 140/75
[2018-01-19 11:25] VITALS: BP 117/57
[2018-01-19 16:03] VITALS: BP 134/63
[2018-01-19 19:00] VITALS: BP 126/66
[2018-01-19 23:37] VITALS: BP 140/79
[2018-01-20 03:53] VITALS: BP 111/56
[2018-01-20 07:26] VITALS: BP 136/60
[2018-01-20 11:45] VITALS: BP 96/51
[2018-01-20 12:17] VITALS: BP 116/56
[2018-01-20 16:11] VITALS: BP 118/59
[2018-01-20 17:46] LABS: C DIFF TOXIN NEGATIVE (NEGATIVE)
[2018-01-20 19:27] VITALS: BP 131/64
[2018-01-21 00:14] VITALS: BP 101/56
[2018-01-21 05:26] LABS: HEMATOCRIT 29.7 % (38.0-50.0); HEMOGLOBIN 9.6 G/DL (12.5-16.6); MCH 27.4 PG (29.0-34.0); MCHC 32.3 G/DL (30.0-36.0); MCV 84.9 FL (86-99); PLATELET COUNT 405 K/uL (156-360); RBC DIS.WIDTH-CV 14.7 % (11.8-14.6); WHITE BLOOD COUNT 5.7 K/uL (4.1-10.2)
[2018-01-21 05:52] LABS: CHLORIDE 106 MEQ/L (99-109); CREATININE 1.1 MG/DL (0.6-1.3); GFR ESTIMATE (CALCULATED) > 59 mL/min/ (58.99-99999); POTASSIUM 4.3 MEQ/L (3.7-5.4); SODIUM 140 MEQ/L (136-147); UREA NITROGEN (BUN) 10 mg/dL (9-23)
[2018-01-21 05:55] LABS: GLUCOSE 261 mg/dL (70-99)
[2018-01-21 08:04] VITALS: BP 117/85
[2018-01-21] MEDS ORDERED: PREDNISONE10 MG PO (09:23)
[2018-01-21] MEDS ORDERED: REGLAN10 MG PO (09:23)
== END 2018-01-21 14:25 | disposition home or self-care (01) | DRG 392 ==
LOC: EME 12:01 → EDOF 16:16 → 4SOUTH 16:16 → EDOF 16:16 → ENRESERV 16:18 → 4SOUTH 17:23
PROVIDERS: Emergency Medicine; Hospitalist; Internal Medicine; Internal Medicine Gastroenterology
PROC: 0DB68ZX Excision of Stomach, Via Natural or Artificial Opening Endoscopic, Diagnostic (ICD-10-PCS; principal; 2018-01-19)
DX: R13.10 Dysphagia, unspecified (principal); N17.9 Acute kidney failure, unspecified; J44.9 Chronic obstructive pulmonary disease, unspecified; I48.0 Paroxysmal atrial fibrillation; K44.9 Diaphragmatic hernia without obstruction or gangrene; K29.70 Gastritis, unspecified, without bleeding; I10 Essential (primary) hypertension; I25.10 Atherosclerotic heart disease of native coronary artery without angina pectoris; E78.5 Hyperlipidemia, unspecified; K21.9 Gastro-esophageal reflux disease without esophagitis; R63.0 Anorexia; E87.5 Hyperkalemia; R12 Heartburn; K22.4 Dyskinesia of esophagus; I12.9 Hypertensive chronic kidney disease with stage 1 through stage 4 chronic kidney disease, or unspecified chronic kidney disease; N18.9 Chronic kidney disease, unspecified; E86.0 Dehydration; Z87.891 Personal history of nicotine dependence; R53.1 Weakness; R63.4 Abnormal weight loss; M10.9 Gout, unspecified; M19.039 Primary osteoarthritis, unspecified wrist; M19.079 Primary osteoarthritis, unspecified ankle and foot; Z80.51 Family history of malignant neoplasm of kidney; Z80.0 Family history of malignant neoplasm of digestive organs; Z79.899 Other long term (current) drug therapy; Z68.31 Body mass index [BMI] 31.0-31.9, adult; Z79.82 Long term (current) use of aspirin; Z91.19 Patient's noncompliance with other medical treatment and regimen
CPT/HCPCS: 71046; 74176; 74220; 80048; 80053; 80069; 81003; 83690; 84132 91; 84484; 85025; 85027; 87493; 88305; 88342 TC; 93005; 94640 76; 99202; 99281; 99285; G0378; G8978 GP CJ; G8979 GP CI; J2405; J2765; J2920; J7030; J7042

== ENCOUNTER 2018-03-30 11:38 | Emergency (ER) | payer OTHER ==
[~2018-03-30] VITALS: Ht 170.2 cm; Wt 74.2 kg
[~2018-03-30 11:38] MED LIST changes: +DICLOFENAC POTA50 MG PO; +REGLAN10 MG PO
[2018-03-30 12:30] LABS: HEMATOCRIT 40.7 % (38.0-50.0); HEMOGLOBIN 13.4 G/DL (12.5-16.6); MCH 29.1 PG (29.0-34.0); MCHC 32.9 G/DL (30.0-36.0); MCV 88.3 FL (86-99); PLATELET COUNT 299 K/uL (156-360); RBC DIS.WIDTH-CV 15.9 % (11.8-14.6); RBC DIS.WIDTH-SD 51.1 % (39-53); RED BLOOD COUNT 4.61 M/uL (4.00-5.50); WHITE BLOOD COUNT 9.2 K/uL (4.1-10.2)
[2018-03-30 12:43] LABS: ALBUMIN 3.9 g/dL (3.2-4.8); CHLORIDE 101 mEq/L (99-109); POTASSIUM 4.3 mEq/L (3.7-5.4); SODIUM 140 mEq/L (136-147)
[2018-03-30 12:46] LABS: GLUCOSE 150 mg/dL (70-99); TOTAL PROTEIN 7.3 g/dL (6.4-8.3)
[2018-03-30 12:47] LABS: TOTAL BILIRUBIN 1.4 mg/dL (0.0-1.0)
[2018-03-30 12:49] LABS: ALKALINE PHOSPHATASE 92 IU/L (3-129); CREATININE 1.8 mg/dL (0.6-1.3); GFR ESTIMATE (CALCULATED) 39 mL/min/ (58.99-99999)
[2018-03-30 12:50] LABS: UREA NITROGEN (BUN) 24 mg/dL (9-23)
[2018-03-30 12:51] LABS: AST (GOT) 27 IU/L (2-34); DIRECT BILIRUBIN 0.5 mg/dL (0.0-0.3)
[2018-03-30 12:52] LABS: ALT (GPT) 22 IU/L (3-49)
[2018-03-30 12:53] LABS: LIPASE 3 U/L (1.0-51.0)
[2018-03-30 14:52] LABS: URIC ACID < 1.5 mg/dL (3.1-9.2)
[2018-03-30 15:31] LABS: APPEARANCE CLEAR ((CLEAR)); BILIRUBIN NEGATIVE; BLOOD SMALL; COLOR YELLOW ((YELLOW)); GLUCOSE (STRIP) NEGATIVE; KETONES 20; LEUKOCYTES NEGATIVE; NITRITE NEGATIVE; PROTEIN (STRIP) NEGATIVE; SPECIFIC GRAVITY 1.034 (1.000-1.030); UROBILINOGEN 0.2 MG/DL (0.2-1.0)
[2018-03-30 15:48] LABS: BACTERIA NONE SEEN /HPF; EPITHELIAL CELLS RARE /HPF; HYALINE CASTS 0-5 /LPF; MUCUS TRACE /LPF; UCUL ADDED? NO; WHITE BLOOD CELLS 0-5 /HPF (0-5)
[2018-03-30] MEDS ORDERED: ZOFRAN4 MG PO (15:51)
[2018-03-30 16:09] VITALS: BP 129/61
== END 2018-03-30 16:11 | disposition home or self-care (01) ==
LOC: EME 11:38
PROVIDERS: Emergency Medicine
DX: R10.84 Generalized abdominal pain (principal); J43.9 Emphysema, unspecified; I10 Essential (primary) hypertension; K21.9 Gastro-esophageal reflux disease without esophagitis; Z79.82 Long term (current) use of aspirin; Z87.891 Personal history of nicotine dependence
CPT/HCPCS: 74177; 76705; 80048; 80076; 81003; 83690; 84550; 85027; J2405; J7030